=== PATIENT | male | born 1955 | race Caucasian/White ===

== ENCOUNTER → 2025-02-04 06:30 | Outpatient (REF) | payer MEDICARE, SELFPAY ==
[2025-02-04 07:58] LABS: Anion Gap 16 (5-15); BUN 39 mg/dL (4-19); BUN/Creat Ratio 15.1 RATIO (10-20); Calcium,Total 8.4 mg/dL (7.6-11.0); Carbon Dioxide 16.8 mmol/L (21.0-32.0); Chloride 97 mmol/L (98-108); Glucose 76 mg/dL (70-99); Potassium 4.1 mmol/L (3.3-5.1)
== END ==
LOC: OLS.SANC 06:30
DX: D64.9 Anemia, unspecified (principal); E11.9 Type 2 diabetes mellitus without complications
CPT/HCPCS: 36415; 80048